=== PATIENT | male | born 1995 | race Caucasian/White ===

== ENCOUNTER 2016-10-10 13:48 | Emergency (ER) | payer OTHER ==
[2016-10-10 13:52] VITALS: BP 150/85
[2016-10-10] MEDS ORDERED: DEXAMETHASONE 4 MG TABLET PO ONE (14:10)
[2016-10-10] MEDS ORDERED: IBUPROFEN 800 MG TABLET PO ONE (14:10)
[2016-10-10] MEDS ORDERED: PENICILLIN V POTASSIUM 500 MG TABLET PO ONE (14:10)
--- NOTE | 2016-10-10 14:12 | ER Document Report ---
HPI - HPI Patient complains to provider of: sore throat Onset: Yesterday Onset/Duration: Gradual Quality of pain: Achy Pain Level: 4 Context: Patient complains of sore throat started yesterday. Patient denies any fever. Patient complains of swelling to his tonsils. Associated Symptoms: Sore throat. denies: Fever Exacerbated by: Denies Relieved by: Denies Similar symptoms previously: Yes Recently seen / treated by doctor: No - ROS ROS below otherwise negative: Yes Systems Reviewed and Negative: Yes All other systems reviewed and negative - EENT EENT: REPORTS: Sore Throat - RESPIRATORY Respiratory: DENIES: Trouble Breathing, Coughing - GASTROINTESTINAL Gastrointestinal: DENIES: Nausea, Patient vomiting - MUSCULOSKELETAL Musculoskeletal: DENIES: Back Pain, Neck Pain - DERM Skin Color: Normal Skin Problems: None Past Medical History - General Information source: Patient - Social History Smoking Status: Never Smoker Chew tobacco use (# tins/day): Yes Frequency of alcohol use: Occasional Drug Abuse: None Family History: Reviewed & Not Pertinent - Medical History Medical History: Negative Renal/ Medical History: Denies: Hx Peritoneal Dialysis Surgical Hx: Negative Vertical Provider Document - CONSTITUTIONAL Agree With Documented VS: Yes Exam Limitations: No Limitations General Appearance: WD/WN, No Apparent Distress - HEENT HEENT: Atraumatic, Normocephalic, Pharyngeal Tenderness, Pharyngeal Erythema. negative: Pharyngeal Exudate, Tympanic Membrane Red, Tympanic Membrane Bulging Notes: Patient with inflammation of the uvula, no potential airway compromise, no tonsillar hypertrophy - NECK Neck: Normal Inspection, Supple. negative: Lymphadenopathy-Left, Lymphadenopathy-Right - RESPIRATORY Respiratory: Breath Sounds Normal, No Respiratory Distress, Chest Non-Tender O2 Sat by Pulse Oximetry: 99 - CARDIOVASCULAR Cardiovascular: Regular Rate, Regular Rhythm, No Murmur - BACK Back: Normal Inspection - MUSCULOSKELETAL/EXTREMETIES Musculoskeletal/Extremeties: MAEW - NEURO Level of Consciousness: Awake, Alert, Appropriate Motor/Sensory: No Motor Deficit - DERM Integumentary: Warm, Dry, No Rash Course - Re-evaluation Re-evalutation: 10/10/16 14:11 The patient has been informed that they may have pre-hypertension or hypertension based on a blood pressure reading in the emergency department. I recommend that patient call the primary care provider listed on their discharge instructions or a physician of their choice by this week to arrange follow-up for further evaluation of possible pre-hypertension her hypertension. - Vital Signs Vital signs: Temp Pulse Resp BP Pulse Ox 99.1 F 72 16 150/85 H 99 10/10/16 13:49 10/10/16 13:49 10/10/16 13:49 10/10/16 13:49 10/10/16 13:49 Discharge - Discharge Clinical Impression: Sore throat, Elevated blood pressure reading Condition: Stable Disposition: HOME, SELF-CARE Instructions: Penicillin V K ([facility]), Sore Throat ([facility]), Family Physicians / Practices Additional Instructions: Return immediately for any new or worsening symptoms Followup with your primary care provider, call tomorrow to make a followup appointment Prescriptions: Naproxen [Naprosyn 250 Nmg Tablet] 1 tab PO BID #14 tablet Penicillin V Potassium [Penicillin Vk 500 mg Tablet] 500 mg PO BID #20 tablet Forms: Elevated Blood Pressure, Return to Work Referrals: [facility] [Provider Group] - Follow up as needed
== END 2016-10-10 14:35 | disposition home or self-care (01) ==
LOC: ER 13:48
DX: J02.9 Acute pharyngitis, unspecified (principal); R03.0 Elevated blood-pressure reading, without diagnosis of hypertension; Z72.0 Tobacco use
CPT/HCPCS: 99282

== ENCOUNTER 2017-07-10 09:17 | Emergency (ER) | payer OTHER ==
--- NOTE | 2017-07-10 10:57 | RADIOLOGY REPORT (SQ) ---
EXAM DESCRIPTION: T SPINE AP/LAT COMPLETED DATE/TIME: 07/10/2017 10:44 am REASON FOR STUDY: t6 tenderness COMPARISON: None. NUMBER OF VIEWS: Two views. TECHNIQUE: AP and lateral radiographic images acquired of the thoracic spine. LIMITATIONS: None. FINDINGS: MINERALIZATION: Normal. ALIGNMENT: Normal. No scoliosis. VERTEBRAE: No fracture or bone lesion. Maintained height, normal segmentation. DISCS: No significant loss of height or significant narrowing. No large osteophytes. HARDWARE: None in the spine. MEDIASTINUM AND SOFT TISSUES: Normal heart size and aortic contour. No soft tissue abnormality. VISUALIZED LUNG SWANSON: Clear. OTHER: No other significant finding. IMPRESSION: NO SIGNIFICANT RADIOGRAPHIC FINDING IN THE THORACIC SPINE. TECHNICAL DOCUMENTATION: JOB ID: [id number] [employer]- All Rights Reserved
[2017-07-10 11:05] VITALS: BP 125/63
--- NOTE | 2017-07-10 11:11 | ER Document Report ---
ED General - General Chief Complaint: Back Pain Stated Complaint: BACK PAIN Time Seen by Provider: 07/10/17 09:36 Mode of Arrival: Ambulatory Information source: Patient Notes: 21-year-old male presents with complaints of thoracic back pain. Patient notes that he chronically has low back pain but over the past few days his upper back started to hurt. He denies any neurological deficits denies any cauda equina concerns he denies any fevers or chills Patient denies any IV drug use denies any trauma denies any fevers denies any history of cancer TRAVEL OUTSIDE OF THE [place] IN LAST 30 DAYS: No - HPI Onset: Last week Onset/Duration: Persistent Quality of pain: Achy Severity: Mild Pain Level: 1 Associated symptoms: Body/muscle aches Exacerbated by: Movement Relieved by: Denies Similar symptoms previously: Yes Recently seen / treated by doctor: Yes - Related Data Allergies/Adverse Reactions: No Known Allergies Allergy (Verified 07/10/17 09:30) Past Medical History - Social History Smoking Status: Current Every Day Smoker Cigarette use (# per day): Yes Chew tobacco use (# tins/day): No Smoking Education Provided: No Frequency of alcohol use: Occasional Drug Abuse: None Family History: Reviewed & Not Pertinent Patient has suicidal ideation: No Patient has homicidal ideation: No Renal/ Medical History: Denies: Hx Peritoneal Dialysis Review of Systems - Review of Systems Notes: REVIEW OF SYSTEMS: CONSTITUTIONAL : Denies fever, chills, or sweats. Denies recent illness. EENT: Denies eye, ear, throat, or mouth pain or symptoms. Denies nasal or sinus congestion or discharge. Denies throat, tongue, or mouth swelling or difficulty swallowing. CARDIOVASCULAR: Denies chest pain. Denies palpitations or racing or irregular heart beat. Denies ankle edema. RESPIRATORY: Denies cough, cold, or chest congestion. Denies shortness of breath, difficulty breathing, or wheezing. GASTROINTESTINAL: Denies abdominal pain or distention. Denies nausea, vomiting , or diarrhea. Denies blood in vomitus, stools, or per rectum. Denies black, tarry stools. Denies constipation. GENITOURINARY: Denies difficulty urinating, painful urination, burning, frequency, blood in urine, or discharge. MUSCULOSKELETAL: Admits to chronic low back pain admits to new onset thoracic pain SKIN: Denies rash, lesions or sores. HEMATOLOGIC : Denies easy bruising or bleeding. LYMPHATIC: Denies swollen, enlarged glands. NEUROLOGICAL: Denies confusion or altered mental status. Denies passing out or loss of consciousness. Denies dizziness or lightheadedness. Denies headache. Denies weakness or paralysis or loss of use of either side. Denies problems with gait or speech. Denies sensory loss, numbness, or tingling. Denies seizures. PSYCHIATRIC: Denies anxiety or stress. Denies depression, suicidal ideation, or homicidal ideation. ALL OTHER SYSTEMS REVIEWED AND NEGATIVE. Dictation was performed using [employer] voice recognition software PHYSICAL EXAMINATION: GENERAL: Well-appearing, well-nourished and in no acute distress. HEAD: Atraumatic, normocephalic. EYES: Pupils equal round and reactive to light, extraocular movements intact, sclera anicteric, conjunctiva are normal. ENT: Nares patent, oropharynx clear without exudates. Moist mucous membranes. NECK: Normal range of motion, supple without lymphadenopathy LUNGS: Breath sounds clear to auscultation bilaterally and equal. No wheezes rales or rhonchi. HEART: Regular rate and rhythm without murmurs ABDOMEN: Soft, nontender, nondistended abdomen. No guarding, no rebound. No masses appreciated. Musculoskeletal: Normal range of motion, no pitting or edema. No cyanosis. Point tenderness T6 region NEUROLOGICAL: Cranial nerves grossly intact. Normal speech, normal gait. Normal sensory, motor exams PSYCH: Normal mood, normal affect. SKIN: Warm, Dry, normal turgor, no rashes or lesions noted. Physical Exam - Vital signs Vitals: Temp Pulse Resp BP Pulse Ox 97.9 F 76 16 146/72 H 98 07/10/17 09:27 07/10/17 09:27 07/10/17 09:27 07/10/17 09:27 07/10/17 09:27 Course - Re-evaluation Re-evalutation: 07/10/17 11:10 Patient has no cauda equina concerns however given the point tenderness and x- ray was performed which was negative. Patient will be given Flexeril and instructed to continue anti-inflammatories. Otherwise he is resting comfortably in no distress stable After performing a Medical Screening Examination, I estimate there is LOW risk for EXPANDING OR RUPTURED ABDOMINAL AORTIC ANEURYSM, CAUDA EQUINA SYNDROME, EPIDURAL MASS LESION, or HERNIATED DISK CAUSING SEVERE SPINAL STENOSIS, thus I consider the discharge disposition reasonable. I have reevaluated this patient multiple times and no significant life threatening changes are noted. The patient and I have discussed the diagnosis and risks, and we agree with discharging home and close follow-up. We also discussed returning to the Emergency Department immediately if new or worsening symptoms occur with the understanding that symptoms and presentations can change. We have discussed the symptoms which are most concerning (e.g., saddle anesthesia, urinary or bowel incontinence or retention, changing or worsening pain) that necessitate immediate return. - Vital Signs Vital signs: Temp Pulse Resp BP Pulse Ox 97.5 F 66 16 125/63 98 07/10/17 11:03 07/10/17 11:03 07/10/17 11:03 07/10/17 11:03 07/10/17 11:03 - Diagnostic Test Radiology reviewed: Image reviewed, Reports reviewed - No acute abnormality Discharge - Discharge Clinical Impression: Hypertension Qualifiers: Hypertension type: essential hypertension Qualified Code(s): I10 - Essential ( primary) hypertension Back pain Qualifiers: Back pain location: low back pain Chronicity: acute Back pain laterality: left Sciatica presence: without sciatica Qualified Code(s): M54.5 - Low back pain Condition: Stable Disposition: HOME, SELF-CARE Instructions: Low Back Pain ([facility]) Prescriptions: Cyclobenzaprine HCl [Flexeril 10 mg Tablet] 10 mg PO TIDP PRN #15 tab PRN Reason: Referrals: MONSERRAT ROONEY MD [Primary Care Provider] - Follow up in 3-5 days
== END 2017-07-10 11:16 | disposition home or self-care (01) ==
LOC: ER 09:17
DX: M54.5 Low back pain (principal); G89.29 Other chronic pain; M54.6 Pain in thoracic spine; I10 Essential (primary) hypertension; F17.210 Nicotine dependence, cigarettes, uncomplicated
CPT/HCPCS: 72070; 99283

== ENCOUNTER 2019-07-01 13:39 | Emergency (ER) | payer OTHER ==
[2019-07-01 13:45] VITALS: BP 140/82
[2019-07-01] MEDS ORDERED: ONDANSETRON HCL INJ/PF 4 MG/2 ML SDV IV ONE (14:19)
[2019-07-01] MEDS ORDERED: NORMAL SALINE 1000 ML 1,000 ML IV ONE ×2 (14:19→15:44)
--- NOTE | 2019-07-01 14:26 | ER Document Report ---
ED Medical Screen (RME) - General Chief Complaint: Abdominal Pain Stated Complaint: ABDOMINAL PAIN,VOMITING Time Seen by Provider: 07/01/19 14:15 Primary Care Provider: MONSERRAT ROONEY MD [Primary Care Provider] - Follow up as needed Notes: 23-year-old male presents with right lower quad abdominal pain started yesterday afternoon. He reports he cooked himself caldera and eggs and all sudden right lower quad start hurting. He reports he has been vomiting nonstop. Reports the pain is severe. Still has an appendix. Denies fever or diarrhea. Denies trauma. I have greeted and performed a rapid initial assessment of this patient. A comprehensive ED assessment and evaluation of the patient, analysis of test results and completion of the medical decision making process will be conducted by additional ED providers. TRAVEL OUTSIDE OF THE [place] IN LAST 30 DAYS: No - Related Data Allergies/Adverse Reactions: No Known Allergies Allergy (Verified 07/01/19 14:14) Past Medical History Renal/ Medical History: Denies: Hx Peritoneal Dialysis Physical Exam - Vital signs Vitals: Temp Pulse Resp BP Pulse Ox 97.8 F 51 L 18 140/82 H 99 07/01/19 13:44 07/01/19 13:44 07/01/19 13:44 07/01/19 13:44 07/01/19 13:44 Course - Vital Signs Vital signs: Temp Pulse Resp BP Pulse Ox 97.8 F 51 L 18 140/82 H 99 07/01/19 13:44 07/01/19 13:44 07/01/19 13:44 07/01/19 13:44 07/01/19 13:44 Doctor's Discharge - Discharge Referrals: MONSERRAT ROONEY MD [Primary Care Provider] - Follow up as needed
[2019-07-01 14:47] LABS: HEMATOCRIT 47.5 % (37.9-51.0); HEMOGLOBIN 16.4 g/dL (13.5-17.0); MEAN CORPUSCULAR HEMOGLOBIN 30.5 pg (27.0-33.4); MEAN CORPUSCULAR HGB CONC 34.5 g/dL (32.0-36.0); MEAN CORPUSCULAR VOLUME 88 fl (80-97); PLATELET COUNT 264 10^3/uL (150-450); RED BLOOD COUNT 5.37 10^6/uL (4.35-5.55); RED CELL DISTRIBUTION WIDTH 13.2 % (11.5-14.0); WHITE BLOOD COUNT 14.2 10^3/uL (4.0-10.5)
[2019-07-01] MEDS ORDERED: KETOROLAC TROMETHAMINE INJ/PF 30 MG/1 ML SDV IV ONE (14:51)
[2019-07-01 15:04] LABS: ALBUMIN 4.9 g/dL (3.5-5.0); ALKALINE PHOSPHATASE 73 U/L (38-126); ANION GAP 10 (5-19); ASPARTATE AMINO TRANSFERASE 22 U/L (17-59); BILIRUBIN,TOTAL 2.7 mg/dL (0.2-1.3); BLOOD UREA NITROGEN 12 mg/dL (7-20); CALCIUM 10.1 mg/dL (8.4-10.2); CARBON DIOXIDE 29 mmol/L (22-30); CHLORIDE 99 mmol/L (98-107); GLUCOSE 107 mg/dL (75-110); POTASSIUM 4.7 mmol/L (3.6-5.0); TOTAL PROTEIN 8.3 g/dL (6.3-8.2)
[2019-07-01 15:17] LABS: ABSOLUTE LYMPHOCYTES# (MANUAL) 0.9 10^3/uL (0.5-4.7); ABSOLUTE MONOCYTES # (MANUAL) 0.1 10^3/uL (0.1-1.4); BASOPHILS % (MANUAL) 0 % (0-2); EOSINOPHILS % (MANUAL) 0 % (0-6); LYMPHOCYTES % (MANUAL) 6 % (13-45); MONOCYTES % (MANUAL) 1 % (3-13); SEGMENTED NEUTROPHILS % (MAN) 93 % (42-78); TOTAL CELLS COUNTED 100
[2019-07-01 15:18] LABS: PLATELET CLUMPS PRESENT; PLATELET COMMENT ADEQUATE
[2019-07-01 15:38] LABS: APPEARANCE,URINE CLEAR; BILIRUBIN,URINE NEGATIVE (NEGATIVE); COLOR,URINE YELLOW; GLUCOSE, URINE NEGATIVE (NEGATIVE); KETONES,URINE 80 mg/dL (NEGATIVE); LEUKOCYTE ESTERASE,URINE NEGATIVE (NEGATIVE); NITRITE,URINE NEGATIVE (NEGATIVE); PROTEIN,URINE 30 mg/dL (NEGATIVE); URINE SPECIFIC GRAVITY 1.028; UROBILINOGEN,URINE NEGATIVE mg/dL (<2.0)
[2019-07-01 15:44] LABS: URINE AMPHETAMINES SCREEN NEGATIVE; URINE BARBITURATES SCREEN NEGATIVE; URINE BENZODIAZEPINES SCREEN NEGATIVE; URINE COCAINE SCREEN NEGATIVE; URINE METHADONE SCREEN NEGATIVE; URINE PHENCYCLIDINE SCREEN NEGATIVE
[2019-07-01 15:45] LABS: URINE MARIJUANA (THC) SCREEN UNCONFIRMED POSITIVE
--- NOTE | 2019-07-01 16:12 | RADIOLOGY REPORT (SQ) ---
EXAM DESCRIPTION: CT ABD/PELVIS WITH IV ONLY COMPLETED DATE/TIME: 07/01/2019 4:02 pm REASON FOR STUDY: RLQ pain, n/v?appy COMPARISON: None. TECHNIQUE: CT scan of the abdomen and pelvis performed using helical scanning technique with dynamic intravenous contrast injection. No oral contrast. Images reviewed with lung, soft tissue, and bone windows. Reconstructed coronal and sagittal MPR images reviewed. Delayed images for evaluation of the urinary system also acquired. All images stored on PACS. All CT scanners at this facility use dose modulation, iterative reconstruction, and/or weight based d osing when appropriate to reduce radiation dose to as low as reasonably achievable (ALARA). [facility]: Dose Right [facility]: CareDose [facility]: Dose Right [facility]: Teradose 4D [facility]: [employer] CONTRAST TYPE AND DOSE: Not recorded not recorded RENAL FUNCTION: None required. The patient is less than 50 years old. RADIATION DOSE: CT Rad equipment meets quality standard of care and radiation dose reduction techniq ues were employed. CTDIvol: NaN mGy. DLP: 0 mGy-cm.. LIMITATIONS: None. FINDINGS: LOWER CHEST: No significant findings. No nodules or infiltrates. LIVER: Normal size. No masses. No dilated ducts. SPLEEN: Normal size. No focal lesions. PANCREAS: No masses. No significant calcifications. No adjacent inflammation or peripancreatic fluid collections. Pancreatic duct not dilated. GALLBLADDER: No identified stones by CT criteria. No inflammatory changes to suggest cholecystitis. ADRENAL GLANDS: No significant masses or asymmetry. RIGHT KIDNEY AND URETER: No solid masses. No significant calcifications. No hydronephrosis or hyd roureter. LEFT KIDNEY AND URETER: No solid masses. No significant calcifications. No hydronephrosis or hydr oureter. AORTA AND VESSELS: No aneurysm. No dissection. Renal arteries, SMA, celiac without stenosis. RETROPERITONEUM: No retroperitoneal adenopathy, hemorrhage or masses. BOWEL AND PERITONEAL CAVITY: No masses or inflammatory changes. No free fluid or peritoneal masses. APPENDIX: Normal caliber. No inflammatory changes. Best seen coronal image 23 PELVIS: No mass. No free fluid. Normal bladder. ABDOMINAL WALL: No masses. No hernias. BONES: No significant or acute findings. OTHER: No other significant finding. IMPRESSION: NO SIGNIFICANT OR ACUTE FINDING IN THE ABDOMEN OR PELVIS ON CT SCAN WITH IV CONTRAST. TECHNICAL DOCUMENTATION: JOB ID: [id number] Quality ID # [id number]: Final reports with documentation of one or more dose reduction techniques (e.g., Au tomated exposure control, adjustment of the mA and/or kV according to patient size, use of iterative reconstruction technique) 2010 [employer]- All Rights Reserved Reading location - IP/workstation name: [email or web address]
--- NOTE | 2019-07-01 17:08 | ER Document Report ---
ED General - General Chief Complaint: Abdominal Pain Stated Complaint: ABDOMINAL PAIN,VOMITING Time Seen by Provider: 07/01/19 14:15 Primary Care Provider: MONSERRAT ROONEY MD [NO LOCAL MD] - Follow up as needed Notes: 23-year-old male presents with nausea/vomiting and right lower quadrant pain that started yesterday afternoon. Patient denies fever/chills, constipation, diarrhea. Patient states he still has his appendix and gallbladder. Patient was given Toradol and Zofran in triage which he states has helped with his pain and his nausea. TRAVEL OUTSIDE OF THE [place] IN LAST 30 DAYS: No - Related Data Allergies/Adverse Reactions: No Known Allergies Allergy (Verified 07/01/19 14:14) Past Medical History - Social History Smoking Status: Never Smoker Chew tobacco use (# tins/day): Yes Family History: Reviewed & Not Pertinent Patient has suicidal ideation: No Patient has homicidal ideation: No Renal/ Medical History: Denies: Hx Peritoneal Dialysis Review of Systems - Review of Systems Notes: Constitutional: Negative for fever. HENT: Negative for sore throat. Eyes: Negative for visual changes. Cardiovascular: Negative for chest pain. Respiratory: Negative for shortness of breath. Gastrointestinal: Positive for abdominal pain, vomiting. Negative for diarrhea. Genitourinary: Negative for dysuria. Musculoskeletal: Negative for back pain. Skin: Negative for rash. Neurological: Negative for headaches, weakness or numbness. 10 point ROS negative except as marked above and in HPI. Physical Exam - Vital signs Vitals: Temp Pulse Resp BP Pulse Ox 97.8 F 51 L 18 140/82 H 99 07/01/19 13:44 07/01/19 13:44 07/01/19 13:44 07/01/19 13:44 07/01/19 13:44 - Notes Notes: GENERAL: Well-appearing, well-nourished and in no acute distress. HEAD: Atraumatic, normocephalic. EYES: Extraocular movements intact, sclera anicteric, conjunctiva are normal. NECK: Normal range of motion, supple without lymphadenopathy or JVD. LUNGS: Breath sounds clear to auscultation bilaterally and equal. No wheezes rales or rhonchi. HEART: Regular rate and rhythm without murmurs, rubs or gallops. ABDOMEN: Soft, tenderness to RLQ. No guarding, no rebound. No masses appreciated. EXTREMITIES: Normal range of motion, no pitting or edema. No clubbing or cyanosis. NEUROLOGICAL: Cranial nerves II through XII grossly intact. Normal speech, normal gait. PSYCH: Normal mood, normal affect. SKIN: Warm, Dry, normal turgor, no rashes or lesions noted. Course - Re-evaluation Re-evalutation: 07/01/19 nontoxic, well-appearing 23-year-old male presents with right lower quadrant pain and nausea and/vomiting. Abdomen soft tenderness to right lower quadrant. Nonsurgical abdomen. Patient is afebrile. Mild leukocytosis of 14.2. Patient was given Toradol and Zofran with improvement in pain and vomiti ng/nausea. CT abdomen/pelvis is negative. Patient to be p.o. challenged 07/01/19 17:26 PO tolerant. Discussed all results with pt. Pt given strict return precautions. Pt given prescription for Zofran and ibuprofen. Pt given follow up with PCP. Pt voices understanding and agrees with plan of care. - Vital Signs Vital signs: Temp Pulse Resp BP Pulse Ox 97.8 F 51 L 18 140/82 H 99 07/01/19 13:44 07/01/19 13:44 07/01/19 13:44 07/01/19 13:44 07/01/19 13:44 - Laboratory Result Diagrams: 07/01/19 14:20 07/01/19 14:20 Laboratory results interpreted by me: 07/01/19 07/01/19 07/01/19 14:20 14:20 15:00 WBC 14.2 H Seg Neuts % (Manual) 93 H Lymphocytes % (Manual) 6 L Monocytes % (Manual) 1 L Abs Neuts (Manual) 13.2 H Total Bilirubin 2.7 H Total Protein 8.3 H Urine Protein 30 H Urine Ketones 80 H Discharge - Discharge Clinical Impression: Nausea & vomiting Qualifiers: Vomiting type: unspecified Vomiting Intractability: unspecified Qualified Code(s): R11.2 - Nausea with vomiting, unspecified Abdominal pain Qualifiers: Abdominal location: right lower quadrant Qualified Code(s): R10.31 - Right lower quadrant pain Condition: Stable Disposition: HOME, SELF-CARE Instructions: Toradol Injection ([facility]), Vomiting ([facility]), Abdominal Pain ([facility]), Intravenous (IV) Fluids ([facility]) Additional Instructions: Your CT abdomen/pelvis was normal. Please take medication as prescribed. Follow up with your primary care doctor in 2-3 days. Return immediately to ER for any worsening symptoms, including worsening abdominal pain, vomiting not controlled by medication, fever, chills, diarrhea/constipation, chest pain, shortness of breath, or any other symptoms that are concerning to you. Prescriptions: Ibuprofen [Motrin 800 mg Tablet] 800 mg PO Q8H PRN #30 tab PRN Reason: Ondansetron [Zofran Odt 4 mg Tablet] 1 - 2 tab PO Q4H PRN #15 tab.rapdis PRN Reason: For Nausea/Vomiting Forms: Return to Work Referrals: MONSERRAT ROONEY MD [NO LOCAL MD] - Follow up in 3-5 days
== END 2019-07-01 18:07 | disposition home or self-care (01) ==
LOC: ER 13:39
DX: R10.31 Right lower quadrant pain (principal); R11.2 Nausea with vomiting, unspecified
CPT/HCPCS: 99284; 96361; 96374; 96375; 36415; 83690; 85025; 80053; 81001; 80307; 74177; J1885; J2405; J7030

== ENCOUNTER 2020-06-09 23:48 | Observation (INO) | payer OTHER ==
[2020-06-10] MEDS ORDERED: ONDANSETRON 4 MG TAB.RAPDIS PO ONE (01:15)
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
[2020-06-10 06:09] LABS: ABSOLUTE LYMPHOCYTES (AUTO) 0.6 10^3/uL (0.5-4.7); ABSOLUTE MONOCYTES (AUTO) 0.3 10^3/uL (0.1-1.4); ABSOLUTE NEUT (AUTO) 9.9 10^3/uL (1.7-8.2); BASOPHILS % (AUTO) 0.1 % (0-2); EOSINOPHILS % (AUTO) 0.1 % (0-6); HEMATOCRIT 44.1 % (37.9-51.0); HEMOGLOBIN 15.2 g/dL (13.5-17.0); LYMPHOCYTES % (AUTO) 5.7 % (13-45); MEAN CORPUSCULAR HEMOGLOBIN 30.1 pg (27.0-33.4); MEAN CORPUSCULAR HGB CONC 34.5 g/dL (32.0-36.0); MEAN CORPUSCULAR VOLUME 87 fl (80-97); MONOCYTES % (AUTO) 2.5 % (3-13); PLATELET COUNT 286 10^3/uL (150-450); RED BLOOD COUNT 5.05 10^6/uL (4.35-5.55); RED CELL DISTRIBUTION WIDTH 13.1 % (11.5-14.0); SEGMENTED NEUTROPHILS % (AUTO) 91.6 % (42-78); TOTAL CELLS COUNTED % (AUTO) 100 %; WHITE BLOOD COUNT 10.8 10^3/uL (4.0-10.5)
[2020-06-10] MEDS ORDERED: PROMETHAZINE HCL INJ 25 MG/1 ML VIAL IV ONE (06:20)
[2020-06-10] MEDS ORDERED: NORMAL SALINE 1000 ML 1,000 ML IV ONE ×2 (06:20→12:01)
[2020-06-10] MEDS ORDERED: KETOROLAC TROMETHAMINE INJ/PF 30 MG/1 ML SDV IV ONE (06:21)
[2020-06-10 06:26] LABS: ALBUMIN 4.4 g/dL (3.5-5.0); ALKALINE PHOSPHATASE 76 U/L (38-126); ANION GAP 7 (5-19); ASPARTATE AMINO TRANSFERASE 52 U/L (17-59); BILIRUBIN,DIRECT 0.1 mg/dL (0.0-0.4); BLOOD UREA NITROGEN 15 mg/dL (7-20); CALCIUM 9.5 mg/dL (8.4-10.2); CARBON DIOXIDE 31 mmol/L (22-30); CHLORIDE 101 mmol/L (98-107); GLUCOSE 120 mg/dL (75-110); POTASSIUM 4.6 mmol/L (3.6-5.0); TOTAL PROTEIN 7.6 g/dL (6.3-8.2)
--- NOTE | 2020-06-10 07:24 | RADIOLOGY REPORT (SQ) ---
CT abdomen and pelvis without contrast on 06/10/2020 at 6:47 AM CLINICAL INDICATION: Right lower quadrant pain TECHNIQUE: Multiple axial images are obtained throughout the abdomen and pelvis without the administration of contrast. This exam was performed according to our departmental dose-optimization program, which includes automated exposure control, adjustment of the mA and/or kV according to patient size and/or use of iterative reconstruction technique. Total DLP is 365.24 mGy*cm. COMPARISON: 07/01/2019 FINDINGS: Abdomen: There are multiple small rounded peripheral groundglass opacities in the bilateral lower lungs consistent with an infectious etiology and worrisome for early viral or COVID 19 pneumonia and recommend appropriate testing. There are no renal or ureteral stones and no hydronephrosis. The unenhanced solid abdominal organs are unremarkable. There is no abdominal adenopathy. There is no free fluid or free air within the abdomen. The abdominal portion of the GI tract is unremarkable. Pelvis: There is no free fluid in the pelvis. There is no pelvic adenopathy. The appendix is prominent but appears stable compared with the prior study without surrounding fat stranding most consistent with jason appendix . Pelvic portion of the GI tract is otherwise unremarkable. No acute bony abnormality is noted. IMPRESSION: 1. Multiple small peripheral rounded groundglass opacities in the lung bases consistent with an infectious etiology. Imaging features can be seen with a viral or COVID 19 pneumonia, though are nonspecific and can occur with a variety of infectious and noninfectious processes. [PneInd] 2. Appendix is prominent but appears stable compared with the prior study without definite surrounding fat stranding and favor this to be jason appendix. If there is high clinical concern for early acute appendicitis consider short-term follow-up repeat exam with IV and oral contrast.
[2020-06-10] MEDS ORDERED: FAMOTIDINE INJ/PF 20 MG/2 ML SDV IV ONE (07:38)
[2020-06-10] MEDS ORDERED: DEXAMETHASONE SOD PHOS INJ 10 MG/1 ML VIAL IV ONE (07:38)
[2020-06-10] MEDS ORDERED: CEFTRIAXONE INJ 1000 MG VIAL IV ONE (07:52)
--- NOTE | 2020-06-10 08:20 | RADIOLOGY REPORT (SQ) ---
EXAM DESCRIPTION: CHEST SINGLE VIEW IMAGES COMPLETED DATE/TIME: 06/10/2020 7:54 am REASON FOR STUDY: abd pain COMPARISON: None. EXAM PARAMETERS: NUMBER OF VIEWS: One view. TECHNIQUE: Single frontal radiographic view of the chest acquired. RADIATION DOSE: NA LIMITATIONS: None. FINDINGS: LUNGS AND PLEURA: No opacities, masses or pneumothorax. No pleural effusion. MEDIASTINUM AND HILAR STRUCTURES: No masses. Contour normal. HEART AND VASCULAR STRUCTURES: Heart normal in size. Normal vasculature. BONES: No acute findings. HARDWARE: None in the chest. OTHER: No other significant finding. IMPRESSION: NO ACUTE RADIOGRAPHIC FINDING IN THE CHEST. TECHNICAL DOCUMENTATION: JOB ID: [id number] 2010 [employer]- All Rights Reserved Reading location - IP/workstation name: [id number]
--- NOTE | 2020-06-10 10:36 | RADIOLOGY REPORT (SQ) ---
EXAM DESCRIPTION: CT ABD/PELVIS WITH IV ONLY IMAGES COMPLETED DATE/TIME: 06/10/2020 9:55 am REASON FOR STUDY: vomiting rlq pain COMPARISON: None. TECHNIQUE: CT scan of the abdomen and pelvis performed using helical scanning technique with dynamic intravenous contrast injection. No oral contrast. Images reviewed with lung, soft tissue, and bone windows. Reconstructed coronal and sagittal MPR images reviewed. Delayed images for evaluation of the urinary system also acquired. All images stored on PACS. All CT scanners at this facility use dose modulation, iterative reconstruction, and/or weight based d osing when appropriate to reduce radiation dose to as low as reasonably achievable (ALARA). [facility]: Dose Right [facility]: CareDose [facility]: Dose Right [facility]: Teradose 4D [facility]: Godigex CONTRAST TYPE AND DOSE: contrast/concentration: Isovue 350.00 mmol/ml; Total Contrast Delivered: 96. 0 ml; Total Saline Delivered: 45.0 ml RENAL FUNCTION: None required. The patient is less than 50 years old. RADIATION DOSE: CT Rad equipment meets quality standard of care and radiation dose reduction techniq ues were employed. CTDIvol: 6.0 - 7.9 mGy. DLP: 752 mGy-cm.. LIMITATIONS: None. FINDINGS: LOWER CHEST: Persistent ground-glass opacities in the lower lobes since the previous stud y dated 06/10/2020. Considerations for these findings again include COVID pneumonia, as well as other viral pneumonias, atypical infections, inflammatory/infectious etiologies. LIVER: Normal size. No masses. No dilated ducts. The hepatic and portal veins are patent. SPLEEN: Normal size. No focal lesions. PANCREAS: No masses. No significant calcifications. No adjacent inflammation or peripancreatic fluid collections. Pancreatic duct not dilated. GALLBLADDER: No identified stones by CT criteria. No inflammatory changes to suggest cholecystitis. ADRENAL GLANDS: No significant masses or asymmetry. RIGHT KIDNEY AND URETER: No solid masses. No significant calcifications. No hydronephrosis or hyd roureter. LEFT KIDNEY AND URETER: No solid masses. No significant calcifications. No hydronephrosis or hydr oureter. AORTA AND VESSELS: No aneurysm. No dissection. Renal arteries, SMA, celiac without stenosis. RETROPERITONEUM: No retroperitoneal adenopathy, hemorrhage or masses. BOWEL AND PERITONEAL CAVITY: No masses or inflammatory changes. No free fluid or peritoneal masses. APPENDIX: As on the prior examination, the appendix is prominent in appearance, axial image 64, seri es 3. No evidence of periappendiceal abscess or inflammatory changes. PELVIS: No mass. No free fluid. Normal bladder. ABDOMINAL WALL: No masses. No hernias. BONES: The osseous structures are stable in appearance. OTHER: No other significant finding. IMPRESSION: 1. As on the prior study performed earlier dated 06/10/2020, the appendix is prominent i n appearance. No evidence of periappendiceal abscess or soft tissue inflammatory changes. The findi ngs again may be on the basis of early appendicitis. (The results of this examination were discussed with emergency department provider on 06/10/2020 at 10:23 hours). 2. Persistent ground-glass opacities in the bilateral lower lobes. Clinical imaging features may re present COVID pneumonia, as well as other viral pneumonias, inflammatory/infectious etiologies. TECHNICAL DOCUMENTATION: JOB ID: [id number] Quality ID # [id number]: Final reports with documentation of one or more dose reduction techniques (e.g., Au tomated exposure control, adjustment of the mA and/or kV according to patient size, use of iterative reconstruction technique) 2010 [employer]- All Rights Reserved Reading location - IP/workstation name: [email or web address]
[2020-06-10] MEDS ORDERED: ROCURONIUM BROMIDE INJ 50 MG/5 ML VIAL IV ONE (10:37)
[2020-06-10] MEDS ORDERED: SUCCINYLCHOLINE CHLORIDE INJ 200 MG/10 ML VIAL ONE (10:37)
[2020-06-10] MEDS ORDERED: CEFOXITIN 1 GM/D5W RTU 1 GM/50 ML RTUPB IV ONE (12:03)
--- NOTE | 2020-06-10 12:19 | PDOC H&P ---
History of Present Illness Patient complains of: right lower abdominal pain, right back pain History of Present Illness: DANN ROONEY is a 24 year old male, healthy, with a 12-hour history of right lower in the right back abdominal pain with intense nausea, no vomiting, no fever chills, no change of bowel habits. A CT scan abdomen pelvis has been done and reveals present acute early appendicitis. In addition, the chest x-ray is negative; however, the overall lung cuts of the patient CT scan of the abdomen revealed bilateral lesions as per beginning COVID-19 infection. Serology for COVID-19 infection is currently pending. Social History Lives with: Family Smoking Status: Never Smoker Family History Family History: Reviewed & Not Pertinent Parental Family History Reviewed: No Children Family History Reviewed: No Sibling(s) Family History Reviewed.: No Medication/Allergy Home Medications: Ibuprofen [Motrin 800 mg Tablet] 800 mg PO Q8H PRN #30 tab 07/01/19 Ondansetron [Zofran Odt 4 mg Tablet] 1 - 2 tab PO Q4H PRN #15 tab.rapdis 07/01/19 Allergies/Adverse Reactions: No Known Allergies Allergy (Verified 07/01/19 14:14) Physical Exam Vital Signs: Temp Pulse Resp BP Pulse Ox 98.4 F 56 L 14 101/41 L 98 06/10/20 10:40 06/10/20 10:40 06/10/20 10:40 06/10/20 10:40 06/10/20 10:40 Intake & Output 06/09/20 06/10/20 06/11/20 06:59 06:59 06:59 Intake Total 1000 Balance 1000 Weight 84.1 kg General appearance: PRESENT: mild distress, thin, other - Patient is sleepy but arousable and appropriate Head exam: PRESENT: atraumatic, normocephalic Eye exam: PRESENT: EOMI Mouth exam: PRESENT: moist, neck supple Neck exam: PRESENT: full ROM Respiratory exam: PRESENT: clear to auscultation aureliano Cardiovascular exam: PRESENT: RRR GI/Abdominal exam: PRESENT: soft, tenderness - In the right lower quadrant with grimacing and guarding Rectal exam: PRESENT: deferred Extremities exam: PRESENT: full ROM Musculoskeletal exam: PRESENT: full ROM Neurological exam: PRESENT: alert, awake, oriented to time, CN II-XII grossly intact Skin exam: PRESENT: warm Results Laboratory Results: 06/10/20 05:44 06/10/20 05:44 06/10/20 06/10/20 05:44 05:44 WBC 10.8 H RBC 5.05 Hgb 15.2 Hct 44.1 MCV 87 MCH 30.1 MCHC 34.5 RDW 13.1 Plt Count 286 Seg Neutrophils % 91.6 H Sodium 138.7 Potassium 4.6 Chloride 101 Carbon Dioxide 31 H Anion Gap 7 BUN 15 Creatinine 0.86 Est GFR ( Amer) > 60 Glucose 120 H Calcium 9.5 Total Bilirubin 1.0 AST 52 Alkaline Phosphatase 76 Total Protein 7.6 Albumin 4.4 Lipase 241.6 Impressions: Chest X-Ray 06/10/20 07:38 IMPRESSION: NO ACUTE RADIOGRAPHIC FINDING IN THE CHEST. Abdomen/Pelvis CT 06/10/20 07:46 IMPRESSION: 1. As on the prior study performed earlier dated 06/10/2020, the appendix is prominent in appearance. No evidence of periappendiceal abscess or soft tissue inflammatory changes. The findings again may be on the basis of early appendicitis. (The results of this examination were discussed with emergency department provider on 06/10/2020 at 10:23 hours). 2. Persistent ground-glass opacities in the bilateral lower lobes. Clinical imaging features may represent COVID pneumonia, as well as other viral pneumonias, inflammatory/infectious etiologies. Assessment & Plan - Diagnosis (1) Acute appendicitis Qualifiers: Acute appendicitis type: with localized peritonitis Is this a current diagnosis for this admission?: Yes (2) Abdominal pain Qualifiers: Abdominal location: right lower quadrant Qualified Code(s): R10.31 - Right lower quadrant pain Is this a current diagnosis for this admission?: Yes (3) Vomiting Qualifiers: Vomiting type: unspecified Vomiting Intractability: unspecified Nausea presence: unspecified Qualified Code(s): R11.10 - Vomiting, unspecified Is this a current diagnosis for this admission?: Yes - Time Anticipated Discharge Disposition: Home, Self Care Anticipated Discharge Timeframe: within 48 hours - Plan Summary Plan Summary: Assessment: Healthy 24-year-old male with right lower quadrant pain, right lower back pain Physical exam reveals exquisite pain right lower quadrant on palpation with guarding and grimacing Blood work reveals a slight leukocytosis of 10.6 CT scan abdomen pelvis significant for early appendicitis Lower lung CT scan cuts demonstrates bilateral inflammatory nodules as per COVID-19 infection COVID-19 CR test currently pending Plan: N.p.o. IV fluids 1 L bolus normal saline then 150 mL/h Mefoxin 2 g IV piggyback preop Laparoscopic appendectomy, possible open, procedure, risks, benefits, complications, alternatives, explained to the patient, he understands all the above, his questions were answered to his satisfaction, he desires to proceed
[2020-06-10] MEDS ORDERED: BUPIVACAINE HCL 0.5%-EPI 1:200000 INJ/PF 30 ML VIAL ONE (12:22)
[2020-06-10 12:50] LABS: APPEARANCE,URINE CLEAR; BILIRUBIN,URINE NEGATIVE (NEGATIVE); COLOR,URINE YELLOW; GLUCOSE, URINE NEGATIVE (NEGATIVE); KETONES,URINE 20 mg/dL (NEGATIVE); LEUKOCYTE ESTERASE,URINE NEGATIVE (NEGATIVE); NITRITE,URINE NEGATIVE (NEGATIVE); PROTEIN,URINE 30 mg/dL (NEGATIVE)
[2020-06-10 12:51] LABS: URINE SPECIFIC GRAVITY > 1.060
[2020-06-10] MEDS ORDERED: FENTANYL CITRATE INJ/PF 100 MCG/2 ML AMPUL ONE ×2 (13:32→17:12)
[2020-06-10] MEDS ORDERED: MIDAZOLAM 2 MG/2 ML INJ ONE (13:32)
[2020-06-10] MEDS ORDERED: DEXAMETHASONE SOD PHOSPHATE INJ 4 MG/1 ML VIAL ONE (13:32)
[2020-06-10] MEDS ORDERED: SUGAMMADEX SODIUM 200 MG/2 ML SDV IV ONE (13:33)
[2020-06-10] MEDS ORDERED: PROPOFOL INJ 200 MG/20 ML VIAL IV ONE (13:33)
[2020-06-10] MEDS ORDERED: MORPHINE SULFATE 10 MG/ML INJ ONE (13:33)
[2020-06-10] MEDS ORDERED: ONDANSETRON HCL INJ/PF 4 MG/2 ML SDV ONE (13:33)
[2020-06-10] MEDS ORDERED: DIPHENHYDRAMINE HCL 50 MG/ML VIAL IV PRN (15:02)
[2020-06-10] MEDS ORDERED: MEPERIDINE HCL/PF INJ 25 MG/1 ML DISP.SYRIN IV PRN (15:02)
[2020-06-10] MEDS ORDERED: FENTANYL CITRATE INJ/PF 100 MCG/2 ML AMPUL IV PRN ×3 (15:02)
[2020-06-10] MEDS ORDERED: MORPHINE SULFATE 10 MG/ML INJ IV PRN (15:02)
[2020-06-10] MEDS ORDERED: ONDANSETRON HCL INJ/PF 4 MG/2 ML SDV IV PRN ×2 (15:02→16:49)
[2020-06-10] MEDS ORDERED: PROMETHAZINE HCL INJ 25 MG/1 ML VIAL IV PRN (15:02)
[2020-06-10] MEDS ORDERED: OXYCODONE-ACETAMINOPHEN 5-325 MG TABLET PO PRN ×2 (15:02)
--- NOTE | 2020-06-10 16:42 | Operative Report ---
Operative Report DATE OF SURGERY: 06/10/20 PREOPERATIVE DIAGNOSIS: Acute appendicitis, positive COVID-19 pneumonitis POSTOPERATIVE DIAGNOSIS: Same OPERATION: Laparoscopic appendectomy SURGEON: SILVIO RODRIGUEZ ANESTHESIA: GA - 30 mL half percent Marcaine with epinephrine TISSUE REMOVED OR ALTERED: Appendix COMPLICATIONS: None ESTIMATED BLOOD LOSS: Negligible INTRAOPERATIVE FINDINGS: Acute nonperforated appendicitis PROCEDURE: The procedure was done in the operating room. The patient was placed in a supine position, general anesthesia induced by endotracheal intubation, the abdomen was prepped and draped in usual fashion. An incision was made just above the umbilicus with a #15 blade, the skin was tented with towel clips and a 5 mm port with Optiview adapter and scope were inserted through the abdominal wall into the peritoneal cavity. After they CO2 pneumoperitoneum was obtained, under direct visualization a 5 mm report was inserted in the right lateral quadrant of the abdomen following skin incision. The scope was removed from the umbilical port and inserted into the right side port. The 5 mm umbilical port was removed and replaced with a 12 mm port, while the 5 mm port was inserted in left lower quadrant of the abdomen following skin incision. The patient was pl aced in steep Trendelenburg position with the right side elevated. The appendix was then identified by tracing the anterior tenia of the cecum, the appendix was then found, elevated, and stretched. The mesentery of the appendix was divided with the LigaSure. The appendix was found inflamed, but non-perforated. The appendix was stapled at the base with an Endo RENATA stapler, extracted from the peritoneal cavity with an Endobag through the umbilical port. The pneumoperitoneum was then re-established, the stapled line was examined and found to be intact. The umbilical fascial defect was closed with a [id number] 0 Vicryl suture, placed with a fascia closure device under direct visualization and left untied. All instruments were removed, the pneumoperitoneum was released, and all ports were removed. The umbilical fascial defect was closed with the previously placed [id number] 0 Vicryl suture, all skin incisions were closed with a 4-0 PDS running subcuticular suture, and covered with Dermabond. The patient tolerated the procedure well, was extubated, and transferred to the recovery room in satisfactory conditions.
[2020-06-10] MEDS ORDERED: NORMAL SALINE 1000 ML 1,000 ML IV PRN (16:49)
--- NOTE | 2020-06-10 18:27 | PDOC CONSULTATION ---
Consultation Consult Date: 06/10/20 Attending physician:: SILVIO RODRIGUEZ Provider Consulted: YARELI PERALTA Consult reason:: covid+ History of Present Illness Admission Date/PCP: 06/10/20 13:27 Patient complains of: covid + History of Present Illness: DANN ROONEY is a 24 year old male with no significant past medical history, who presented to the hospital with complaints of abdominal pain and was diagnosed with appendicitis and taken for a laparoscopic appendectomy. Unfortunately, he tested positive for COVID-19 on his preop screen. On evaluation of patient, patient states that he has been having nasal congestion and runny nose for the past 2 days as well as loss of taste and smell sensations. Otherwise he has not been having any cough or shortness of breath. He denies any chest pain. Denies any fever or chills. 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 He did have some nausea and vomiting but he felt that that was from his abdominal pain. Past Medical History Medical History: None Past Surgical History Past Surgical History: Reports: None Social History Lives with: Family Smoking Status: Never Smoker Frequency of Alcohol Use: None Hx Recreational Drug Use: No - Advance Directive Resuscitation Status: Full Code Family History Family History: Hypertension, Malignancy Parental Family History Reviewed: Yes Children Family History Reviewed: Yes Sibling(s) Family History Reviewed.: Yes Medication/Allergy Home Medications: Ibuprofen [Motrin 800 mg Tablet] 800 mg PO Q8H PRN #30 tab 07/01/19 Ondansetron [Zofran Odt 4 mg Tablet] 1 - 2 tab PO Q4H PRN #15 tab.rapdis 07/01/19 Allergies/Adverse Reactions: No Known Allergies Allergy (Verified 07/01/19 14:14) Review of Systems Constitutional: ABSENT: chills Eyes: ABSENT: visual disturbances Nose, Mouth, and Throat: ABSENT: headache(s) Cardiovascular: ABSENT: chest pain Respiratory: ABSENT: cough, dyspnea Gastrointestinal: PRESENT: nausea, vomiting. ABSENT: abdominal pain, diarrhea Genitourinary: ABSENT: dysuria Integumentary: PRESENT: diaphoresis Neurological: ABSENT: dizziness Endocrine: ABSENT: polyuria Hematologic/Lymphatic: ABSENT: easy bleeding Allergic/Immunologic: ABSENT: seasonal rhinorrhea Physical Exam Vital Signs: Temp Pulse Resp BP Pulse Ox 98.1 F 71 19 127/60 H 100 06/10/20 16:41 06/10/20 16:41 06/10/20 16:41 06/10/20 16:41 06/10/20 16:41 Intake & Output 06/09/20 06/10/20 06/11/20 06:59 06:59 06:59 Intake Total 3050 Balance 3050 Weight 84.1 kg General appearance: PRESENT: no acute distress, cooperative Head exam: PRESENT: normocephalic Mouth exam: PRESENT: neck supple Neck exam: ABSENT: JVD Respiratory exam: PRESENT: clear to auscultation aureliano, symmetrical, unlabored. ABSENT: crackles, tachypnea, wheezes Cardiovascular exam: PRESENT: RRR, +S1, +S2. ABSENT: tachycardia GI/Abdominal exam: PRESENT: soft, tenderness. ABSENT: rebound, rigid Extremities exam: ABSENT: pedal edema Neurological exam: PRESENT: alert, awake, oriented to person, oriented to place, oriented to time, oriented to situation Psychiatric exam: ABSENT: agitated, anxious Results Laboratory Results: 06/10/20 05:44 06/10/20 05:44 06/10/20 06/10/20 06/10/20 05:44 05:44 12:33 WBC 10.8 H RBC 5.05 Hgb 15.2 Hct 44.1 MCV 87 MCH 30.1 MCHC 34.5 RDW 13.1 Plt Count 286 Seg Neutrophils % 91.6 H Sodium 138.7 Potassium 4.6 Chloride 101 Carbon Dioxide 31 H Anion Gap 7 BUN 15 Creatinine 0.86 Est GFR ( Amer) > 60 Glucose 120 H Calcium 9.5 Total Bilirubin 1.0 AST 52 Alkaline Phosphatase 76 Total Protein 7.6 Albumin 4.4 Lipase 241.6 Urine Color YELLOW Urine Appearance CLEAR Urine pH 6.0 Ur Specific [place] > 1.060 Urine Protein 30 H Urine Glucose (UA) NEGATIVE Urine Ketones 20 H Urine Blood NEGATIVE Urine Nitrite NEGATIVE Ur Leukocyte Esterase NEGATIVE Urine RBC (Auto) 1 Impressions: Chest X-Ray 06/10/20 07:38 IMPRESSION: NO ACUTE RADIOGRAPHIC FINDING IN THE CHEST. Abdomen/Pelvis CT 06/10/20 07:46 IMPRESSION: 1. As on the prior study performed earlier dated 06/10/2020, the appendix is prominent in appearance. No evidence of periappendiceal abscess or soft tissue inflammatory changes. The findings again may be on the basis of early appendicitis. (The results of this examination were discussed with emergency department provider on 06/10/2020 at 10:23 hours). 2. Persistent ground-glass opacities in the bilateral lower lobes. Clinical imaging features may represent COVID pneumonia, as well as other viral pneumonias, inflammatory/infectious etiologies. Assessment and Plan - Diagnosis (1) COVID-19 virus infection Is this a current diagnosis for this admission?: Yes Plan: Tested positive for COVID-19. I have reviewed patient's chest x-ray image which shows no porter pneumonia just some prominent vascular markings. SPO2 is 98 to 100% on room air. Seems to be mostly involving his upper respiratory tract. Flonase recommended Started patient on vitamin D, vitamin C and zinc supplements which he should continue on discharge. Can obtain [id number]. I have instructed him to remain under self-isolation for the next 15 to 20 days. Given patient has only mild disease, he does not require any further treatment for his COVID-19 and can be discharged at any time in regards to this. No further recommendations. I will sign off but I will check in on his vital signs tomorrow. (2) URI (upper respiratory infection) Qualifiers: URI type: unspecified viral URI Qualified Code(s): J06.9 - Acute upper respiratory infection, unspecified Is this a current diagnosis for this admission?: Yes Plan: 2/2 covid. flonase nasal spray q12h (3) Acute appendicitis Qualifiers: Acute appendicitis type: with localized peritonitis Is this a current diagnosis for this admission?: Yes Plan: Status post appendectomy. Zofran as needed for nausea vomiting. Surgery following. - Time Time Spent with patient: 35 or more minutes Anticipated Discharge Disposition: Home, Self Care Anticipated Discharge Timeframe: within 24 hours
[2020-06-10] MEDS: KETOROLAC TROMETHAMINE INJ/PF 30 MG/1 ML SDV IV SCH (18:55)
[2020-06-10] MEDS: DOCUSATE SODIUM 100 MG CAPSULE PO SCH (18:55)
[2020-06-10] MEDS: FAMOTIDINE 20 MG TABLET PO SCH (18:55)
[2020-06-10] MEDS ORDERED: CEFOXITIN INJ 2 GM VIAL IV SCH (22:00)
[2020-06-10] MEDS: FLUTICASONE NASAL SPRAY 50 MCG/SPRY 120 SPRAY/16 GM NASL SCH (22:28)
[2020-06-10] MEDS: CEFOXITIN SODIUM 2 GM in DEXTROSE 5%-WATER 100 ML IV SCH (22:28)
[2020-06-11] MEDS: KETOROLAC TROMETHAMINE INJ/PF 30 MG/1 ML SDV IV SCH ×2 (00:20→05:04)
[2020-06-11] MEDS: FAMOTIDINE 20 MG TABLET PO SCH (05:04)
[2020-06-11 07:31] LABS: ABSOLUTE MONOCYTES (AUTO) 0.7 10^3/uL (0.1-1.4); ABSOLUTE NEUT (AUTO) 7.9 10^3/uL (1.7-8.2); BASOPHILS % (AUTO) 0.1 % (0-2); EOSINOPHILS % (AUTO) 0.1 % (0-6); HEMATOCRIT 38.6 % (37.9-51.0); HEMOGLOBIN 13.4 g/dL (13.5-17.0); LYMPHOCYTES % (AUTO) 10.7 % (13-45); MEAN CORPUSCULAR HEMOGLOBIN 30.2 pg (27.0-33.4); MEAN CORPUSCULAR HGB CONC 34.7 g/dL (32.0-36.0); MEAN CORPUSCULAR VOLUME 87 fl (80-97); MONOCYTES % (AUTO) 7.2 % (3-13); PLATELET COUNT 237 10^3/uL (150-450); RED BLOOD COUNT 4.43 10^6/uL (4.35-5.55); SEGMENTED NEUTROPHILS % (AUTO) 81.9 % (42-78); TOTAL CELLS COUNTED % (AUTO) 100 %; WHITE BLOOD COUNT 9.6 10^3/uL (4.0-10.5)
[2020-06-11 07:51] LABS: ANION GAP 5 (5-19); BLOOD UREA NITROGEN 13 mg/dL (7-20); CALCIUM 8.3 mg/dL (8.4-10.2); CARBON DIOXIDE 26 mmol/L (22-30); CHLORIDE 106 mmol/L (98-107); GLUCOSE 113 mg/dL (75-110); POTASSIUM 4.1 mmol/L (3.6-5.0)
[2020-06-11] MEDS ORDERED: INFLUENZA QUAD (6MOS+) 2020-21 VAC 0.5 ML SYR IM ONE (08:00)
--- NOTE | 2020-06-11 08:19 | PDOC DISCHARGE SUMMARY ---
General - Admit/Disc Date/PCP Admission Date/Primary Care Provider: 06/10/20 13:27 Discharge Date: 06/11/20 - Discharge Diagnosis Final Diagnosis: Appendicitis - Assessment Summary: Patient was admitted yesterday for right lower quadrant abdominal pain diagnosis appendicitis was made in the emergency room was taken to the operating for laparoscopic appendectomy. He was noted to be Covid positive. Postoperatively had a routine benign postop course hospital consult was obtained for the positive Covid status he was recommended to take vitamin D multivitamins and zinc. He is given instructions to buy those products [id number] and he could be discharged home today. He is tolerating a regular diet. He will be given a follow-up appointment in 7 to 10 days after discharge in surgical clinic. - Additional Information Resuscitation Status: Full Code Discharge Diet: As Tolerated Discharge Activity: No Lifting Over 10 Pounds Prescriptions: Hydrocodone/Acetaminophen [[place] 10-325 mg Tablet] 1 tab PO Q6HP PRN #10 tablet PRN Reason: Home Medications: Hydrocodone/Acetaminophen [[place] 10-325 mg Tablet] 1 tab PO Q6HP PRN #10 tablet 06/11/20 History of Present Illiness History of Present Illness: DANN ROONEY is a 24 year old male Physical Exam Vital Signs: Temp Pulse Resp BP Pulse Ox 97.5 F 66 18 147/58 H 100 06/11/20 07:38 06/11/20 07:38 06/11/20 07:38 06/11/20 07:38 06/11/20 07:38 Pulse Oximeter Continuous Start: 06/10/20 16:54 Freq: RTQ4 Status: Active Protocol: Document 06/11/20 04:00 LRO (Rec: 06/11/20 06:05 LRO [id number]) Pulse Oximetry Assessment Oxygen Saturation (92-100) 99 Fraction of Inspired Oxygen (FIO2) 21 Equipment Usage Equipment Standby Continuous SpO2 Machine # monitor Intake & Output 06/10/20 06/11/20 06/12/20 06:59 06:59 06:59 Intake Total 4707 Output Total 800 Balance 3907 Weight 84.1 kg 84.1 kg Results Laboratory Results: WBC 9.6 10^3/uL (4.0-10.5) 06/11/20 06:56 RBC 4.43 10^6/uL (4.35-5.55) 06/11/20 06:56 Hgb 13.4 g/dL (13.5-17.0) L 06/11/20 06:56 Hct 38.6 % (37.9-51.0) 06/11/20 06:56 MCV 87 fl (80-97) 06/11/20 06:56 MCH 30.2 pg (27.0-33.4) 06/11/20 06:56 MCHC 34.7 g/dL (32.0-36.0) 06/11/20 06:56 RDW 13.0 % (11.5-14.0) 06/11/20 06:56 Plt Count 237 10^3/uL (150-450) 06/11/20 06:56 Lymph % (Auto) 10.7 % (13-45) L 06/11/20 06:56 [place] % (Auto) 7.2 % (3-13) 06/11/20 06:56 Eos % (Auto) 0.1 % (0-6) 06/11/20 06:56 Baso % (Auto) 0.1 % (0-2) 06/11/20 06:56 Absolute Neuts (auto) 7.9 10^3/uL (1.7-8.2) 06/11/20 06:56 Absolute Lymphs (auto) 1.0 10^3/uL (0.5-4.7) 06/11/20 06:56 Absolute Monos (auto) 0.7 10^3/uL (0.1-1.4) 06/11/20 06:56 Absolute Eos (auto) 0.0 10^3/uL (0.0-0.6) 06/11/20 06:56 Absolute Basos (auto) 0.0 10^3/uL (0.0-0.2) 06/11/20 06:56 Seg Neutrophils % 81.9 % (42-78) H 06/11/20 06:56 Sodium 136.6 mmol/L (137-145) L 06/11/20 06:56 Potassium 4.1 mmol/L (3.6-5.0) 06/11/20 06:56 Chloride 106 mmol/L (98-107) 06/11/20 06:56 Carbon Dioxide 26 mmol/L (22-30) 06/11/20 06:56 Anion Gap 5 (5-19) 06/11/20 06:56 BUN 13 mg/dL (7-20) 06/11/20 06:56 Creatinine 0.74 mg/dL (0.52-1.25) 06/11/20 06:56 Est GFR ( Amer) > 60 (>60) 06/11/20 06:56 Est GFR (MDRD) Non-Af > 60 (>60) 06/11/20 06:56 Glucose 113 mg/dL (75-110) H 06/11/20 06:56 Calcium 8.3 mg/dL (8.4-10.2) L 06/11/20 06:56 Total Bilirubin 1.0 mg/dL (0.2-1.3) 06/10/20 05:44 Direct Bilirubin 0.1 mg/dL (0.0-0.4) 06/10/20 05:44 Neonat Total Bilirubin Not Reportable 06/10/20 05:44 Neonat Direct Bilirubin Not Reportable 06/10/20 05:44 Neonat Indirect Bili Not Reportable 06/10/20 05:44 AST 52 U/L (17-59) 06/10/20 05:44 ALT 71 U/L (<50) H 06/10/20 05:44 Alkaline Phosphatase 76 U/L (38-126) 06/10/20 05:44 Total Protein 7.6 g/dL (6.3-8.2) 06/10/20 05:44 Albumin 4.4 g/dL (3.5-5.0) 06/10/20 05:44 Lipase 241.6 U/L (23-300) 06/10/20 05:44 Urine Color YELLOW 06/10/20 12:33 Urine Appearance CLEAR 06/10/20 12:33 Urine pH 6.0 (5.0-9.0) 06/10/20 12:33 Ur Specific [place] > 1.060 06/10/20 12:33 Urine Protein 30 mg/dL (NEGATIVE) H 06/10/20 12:33 Urine Glucose (UA) NEGATIVE mg/dL (NEGATIVE) 06/10/20 12:33 Urine Ketones 20 mg/dL (NEGATIVE) H 06/10/20 12:33 Urine Blood NEGATIVE (NEGATIVE) 06/10/20 12:33 Urine Nitrite NEGATIVE (NEGATIVE) 06/10/20 12:33 Urine Bilirubin NEGATIVE (NEGATIVE) 06/10/20 12:33 Urine Urobilinogen 2.0 mg/dL (<2.0) H 06/10/20 12:33 Ur Leukocyte Esterase NEGATIVE (NEGATIVE) 06/10/20 12:33 Urine RBC (Auto) 1 /HPF 06/10/20 12:33 Urine Mucus (Auto) OCC /LPF 06/10/20 12:33 Urine Ascorbic Acid NEGATIVE (NEGATIVE) 06/10/20 12:33 COVID-19 Source Cancelled 06/10/20 07:35 COVID-19 (BETO) Cancelled 06/10/20 07:35 Influenza A (RT-PCR) NEGATIVE (NEGATIVE) 06/10/20 07:35 Influenza B (RT-PCR) NEGATIVE (NEGATIVE) 06/10/20 07:35 RSV (RT-PCR) NEGATIVE (NEGATIVE) 06/10/20 07:35 SARS-CoV-2 Rap RNA(RT-PCR) POSITIVE (NEGATIVE) 06/10/20 07:35 Impressions: Abdomen/Pelvis CT 06/10/20 06:21 IMPRESSION: 1. Multiple small peripheral rounded groundglass opacities in the lung bases consistent with an infectious etiology. Imaging features can be seen with a viral or COVID 19 pneumonia, though are nonspecific and can occur with a variety of infectious and noninfectious processes. [PneInd] 2. Appendix is prominent but appears stable compared with the prior study without definite surrounding fat stranding and favor this to be jason appendix. If there is high clinical concern for early acute appendicitis consider short-term follow-up repeat exam with IV and oral contrast. Chest X-Ray 06/10/20 07:38 IMPRESSION: NO ACUTE RADIOGRAPHIC FINDING IN THE CHEST. Abdomen/Pelvis CT 06/10/20 07:46 IMPRESSION: 1. As on the prior study performed earlier dated 06/10/2020, the appendix is prominent in appearance. No evidence of periappendiceal abscess or soft tissue inflammatory changes. The findings again may be on the basis of early appendicitis. (The results of this examination were discussed with emergency department provider on 06/10/2020 at 10:23 hours). 2. Persistent ground-glass opacities in the bilateral lower lobes. Clinical imaging features may represent COVID pneumonia, as well as other viral pneumonias, inflammatory/infectious etiologies.
[2020-06-11 09:26] VITALS: BP 141/82
[2020-06-11] MEDS: DOCUSATE SODIUM 100 MG CAPSULE PO SCH (09:29)
[2020-06-11] MEDS: FLUTICASONE NASAL SPRAY 50 MCG/SPRY 120 SPRAY/16 GM NASL SCH (09:30)
[2020-06-11] MEDS: CEFOXITIN SODIUM 2 GM in DEXTROSE 5%-WATER 100 ML IV SCH (09:30)
[2020-06-11] MEDS ORDERED: ENOXAPARIN SODIUM INJ 40 MG/0.4 ML DISP.SYRIN SUBCUT SCH (10:00)
[2020-06-11] MEDS ORDERED: ZINC SULFATE 220 MG CAPSULE PO SCH (10:00)
[2020-06-11] MEDS ORDERED: CHOLECALCIFEROL (D3) 1,000 UNIT (25 MCG) TABLET PO SCH (10:00)
[2020-06-11] MEDS ORDERED: ASCORBIC ACID 500 MG TABLET PO SCH (10:00)
== END 2020-06-11 10:35 | disposition home or self-care (01) ==
LOC: ER 23:48 → INTOOBSV 06-10 13:27 → EH 06-10 13:27 → 4S 06-10 18:46
PROVIDERS: ATTEND Surgery
DX: K35.30 Acute appendicitis with localized peritonitis, without perforation or gangrene (principal); U07.1 COVID-19; J12.82 Pneumonia due to coronavirus disease 2019; J06.9 Acute upper respiratory infection, unspecified; Z01.812 Encounter for preprocedural laboratory examination
CPT/HCPCS: 99285; 96361 ×2; 96375; 96365; 96367; 36415 ×2; 87040; 83690; 85025 ×2; 0241U ×4; 80048; 80053; 81001; 88304 ×2; 71045; 74176; 74177; 99140; 00840; 44970; J2250; J3490 ×4; J1100 ×2; S0119; J3010; J0694 ×2; J1885 ×2; J2550; J0330; J0696; J2405; J7060; J7030; J2704; S0028; C9803; 840; J2270